=== PATIENT | female | born 1960 | race Caucasian/White ===

== ENCOUNTER 2021-04-05 10:34 | Inpatient (IN) | payer SELFPAY ==
[~2021-04-05 10:34] MED LIST: Iopamidol-370 76% 500 ML 1 ML ONE
[2021-04-05] MEDS ORDERED: Dexamethasone 10 MG/ML VIAL ONE (11:07)
[2021-04-05 11:11] LABS: #Basophils 0.1 thou/uL (0.0-0.2); #Eosinphils 0.1 thou/uL (0.0-0.7); #Lymphocytes 1.5 thou/uL (1.20-3.40); #Monocytes 0.8 thou/uL (0.11-0.59); #Neutrophils 6.2 thou/uL (1.40-6.50); %Basophils 0.7 % (0.0-1.0); %Eosinophils 0.9 % (0.0-10.0); %Lymphocytes 16.9 % (21.0-51.0); %Monocytes 9.2 % (0.0-10.0); %Neutrophils 72.3 % (42.0-75.0); Hemoglobin 13.9 g/dL (12.0-16.0); Mean Corpuscular HGB CONC 31.3 g/dL (32.0-36.0); Mean Corpuscular Hemoglobin 29.8 pg (27.0-31.0); Mean Corpuscular Volume 95.1 fL (78.0-98.0); Mean Platelet Volume 7.1 fL (7.4-10.4); Platelet Count 410 thou/uL (130-400); RBC Distribution Width 11.9 % (11.5-14.5); Red Blood Cell (RBC) Count 4.68 mill/uL (4.20-5.40); White Blood Cell (WBC) Count 8.6 thou/uL (4.8-10.8)
[2021-04-05 11:40] LABS: ALT (SGPT) 193 U/L (8-55); AST (SGOT) 164 U/L (5-34); Albumin 3.3 g/dL (3.5-5.0); Alkaline Phosphatase 237 U/L (40-110); Anion Gap 15 mmol/L (10-20); BUN (Urea Nitrogen) 10 mg/dL (9.8-20.1); Bilirubin, Total 0.9 mg/dL (0.2-1.2); Calc. Creatinine Clearance 0 mL/min (70-130); Calcium 9.6 mg/dL (7.8-10.44); Carbon Dioxide 30 mmol/L (22-29); Chloride 97 mmol/L (98-107); Globulin 4.1 g/dL (2.4-3.5); Glucose 102 mg/dL (70-105); Lipase 9 U/L (8-78); Magnesium 1.8 mg/dL (1.6-2.6); Potassium 3.6 mmol/L (3.5-5.1); Protein, Total 7.4 g/dL (6.0-8.3); Sodium 138 mmol/L (136-145)
[2021-04-05] MEDS ORDERED: Ondansetron PF 4 MG/2 ML Vial ONE (11:50)
[2021-04-05 12:13] LABS: Bilirubin Negative (Negative); Blood, Urine Negative (Negative); Clarity Clear (Clear); Glucose, Urine (Dipstick) Normal (Negative); Ketone, Urine Negative (Negative); Leukocyte Negative Leu/uL (Negative); Nitrite Negative (Negative); Protein, Urine (Dipstick) Negative (Neg-Trace); Specific Gravity, Urine 1.004 (1.002-1.036); Urobilinogen Normal mg/dL (Less than 2)
[2021-04-05 12:18] LABS: SARS-CoV-2 NAA Rapid Test DETECTED (NotDetected)
[2021-04-05] MEDS ORDERED: Enoxaparin Sodium 100 MG/ML SYRINGE ONE (12:46)
[2021-04-05] MEDS ORDERED: Acetaminophen 325 MG TAB PO PRN (13:03)
[2021-04-05] MEDS ORDERED: Metoprolol Tartrate 5 MG/5 ML VIAL IVP PRN (13:07)
[2021-04-05] MEDS ORDERED: guaiFENesin/Codeine 200 mg/20 mg 10 ml Cup PO PRN (13:07)
[2021-04-05 14:27] VITALS: BMI 35.3
[2021-04-06] MEDS ORDERED: guaiFENesin/Codeine 200 mg/20 mg 10 ml Cup PO PRN (00:30)
[2021-04-06] MEDS ORDERED: Enoxaparin Sodium 100 MG/ML SYRINGE SC SCH ×2 (01:00→09:00)
[2021-04-06 04:53] LABS: Mean Corpuscular HGB CONC 32.2 g/dL (32.0-36.0); Mean Corpuscular Hemoglobin 30.5 pg (27.0-31.0); Mean Platelet Volume 7.1 fL (7.4-10.4); Platelet Count 399 thou/uL (130-400); Red Blood Cell (RBC) Count 3.94 mill/uL (4.20-5.40); White Blood Cell (WBC) Count 7.4 thou/uL (4.8-10.8)
[2021-04-06 05:18] LABS: ALT (SGPT) 146 U/L (8-55); AST (SGOT) 93 U/L (5-34); Albumin 2.8 g/dL (3.5-5.0); Alkaline Phosphatase 192 U/L (40-110); Anion Gap 10 mmol/L (10-20); BUN (Urea Nitrogen) 9 mg/dL (9.8-20.1); Bilirubin, Total 0.5 mg/dL (0.2-1.2); Calc. Creatinine Clearance 142 mL/min (70-130); Calcium 8.6 mg/dL (7.8-10.44); Carbon Dioxide 30 mmol/L (22-29); Chloride 102 mmol/L (98-107); Globulin 3.6 g/dL (2.4-3.5); Glucose 120 mg/dL (70-105); Potassium 4.3 mmol/L (3.5-5.1); Protein, Total 6.4 g/dL (6.0-8.3); Sodium 138 mmol/L (136-145)
[2021-04-06] MEDS: Levothyroxine Sodium 112 MCG TAB PO SCH ×3 (05:45→20:46)
[2021-04-06 06:09] LABS: Band 15 % (5-11); Lymphocytes 15 % (21-51); MDiff Complete? YES; Monocytes 7 % (0-10); Neutrophil 63 % (42-75)
[2021-04-06] MEDS: Dexamethasone 6 MG in Sodium Chloride 0.9% 50 ML IVPB SCH (10:17)
[2021-04-06] MEDS ORDERED: Calcium Carbonate 500 MG ChewTAB PO PRN (14:57)
[2021-04-06] MEDS: Apixaban 5 MG TAB PO SCH (20:45)
[2021-04-07] MEDS: guaiFENesin/Codeine 200 mg/20 mg 10 ml Cup PO PRN ×2 (01:05→23:29)
[2021-04-07 05:05] LABS: #Lymphocytes 1.9 thou/uL (1.20-3.40); #Monocytes 1.1 thou/uL (0.11-0.59); %Basophils 0.2 % (0.0-1.0); %Eosinophils 0.4 % (0.0-10.0); %Monocytes 9.9 % (0.0-10.0); %Neutrophils 72.5 % (42.0-75.0); Hemoglobin 11.7 g/dL (12.0-16.0); Mean Corpuscular HGB CONC 31.8 g/dL (32.0-36.0); Mean Corpuscular Hemoglobin 30.1 pg (27.0-31.0); Mean Corpuscular Volume 94.7 fL (78.0-98.0); Mean Platelet Volume 6.8 fL (7.4-10.4); Platelet Count 490 thou/uL (130-400); Red Blood Cell (RBC) Count 3.88 mill/uL (4.20-5.40)
[2021-04-07 05:38] LABS: ALT (SGPT) 145 U/L (8-55); AST (SGOT) 98 U/L (5-34); Albumin 2.8 g/dL (3.5-5.0); Alkaline Phosphatase 180 U/L (40-110); Anion Gap 10 mmol/L (10-20); BUN (Urea Nitrogen) 10 mg/dL (9.8-20.1); Bilirubin, Total 0.5 mg/dL (0.2-1.2); CRP (Inflammatory) 10.11 mg/dL (= or < 0.5); Calc. Creatinine Clearance 151 mL/min (70-130); Calcium 8.4 mg/dL (7.8-10.44); Carbon Dioxide 28 mmol/L (22-29); Chloride 104 mmol/L (98-107); Globulin 3.3 g/dL (2.4-3.5); Glucose 93 mg/dL (70-105); Potassium 4.3 mmol/L (3.5-5.1); Protein, Total 6.1 g/dL (6.0-8.3); Sodium 138 mmol/L (136-145)
[2021-04-07] MEDS: Apixaban 5 MG TAB PO SCH ×2 (08:49→22:19)
[2021-04-07] MEDS: Dexamethasone 6 MG in Sodium Chloride 0.9% 50 ML IVPB SCH (08:49)
[2021-04-07] MEDS: Levothyroxine Sodium 112 MCG TAB PO SCH (22:19)
[2021-04-08 05:20] LABS: #Basophils 0.1 thou/uL (0.0-0.2); #Eosinphils 0.1 thou/uL (0.0-0.7); #Lymphocytes 2.1 thou/uL (1.20-3.40); #Monocytes 1.2 thou/uL (0.11-0.59); #Neutrophils 6.8 thou/uL (1.40-6.50); %Basophils 0.6 % (0.0-1.0); %Eosinophils 0.6 % (0.0-10.0); %Lymphocytes 20.6 % (21.0-51.0); %Neutrophils 66.3 % (42.0-75.0); Hemoglobin 11.9 g/dL (12.0-16.0); Mean Corpuscular HGB CONC 32.4 g/dL (32.0-36.0); Mean Corpuscular Hemoglobin 30.8 pg (27.0-31.0); Mean Corpuscular Volume 95.1 fL (78.0-98.0); Mean Platelet Volume 6.6 fL (7.4-10.4); Platelet Count 466 thou/uL (130-400); RBC Distribution Width 11.9 % (11.5-14.5); Red Blood Cell (RBC) Count 3.88 mill/uL (4.20-5.40); White Blood Cell (WBC) Count 10.2 thou/uL (4.8-10.8)
[2021-04-08 05:54] LABS: ALT (SGPT) 133 U/L (8-55); AST (SGOT) 69 U/L (5-34); Albumin 2.8 g/dL (3.5-5.0); Alkaline Phosphatase 178 U/L (40-110); Anion Gap 12 mmol/L (10-20); BUN (Urea Nitrogen) 9 mg/dL (9.8-20.1); Bilirubin, Total 0.5 mg/dL (0.2-1.2); CRP (Inflammatory) 4.93 mg/dL (= or < 0.5); Calc. Creatinine Clearance 153 mL/min (70-130); Carbon Dioxide 28 mmol/L (22-29); Chloride 103 mmol/L (98-107); Globulin 3.3 g/dL (2.4-3.5); Glucose 78 mg/dL (70-105); Potassium 4.2 mmol/L (3.5-5.1); Protein, Total 6.1 g/dL (6.0-8.3); Sodium 139 mmol/L (136-145)
[2021-04-08] MEDS: Ascorbic Acid 500 mg Chewable Tablet PO SCH (07:42)
[2021-04-08] MEDS: Cholecalciferol (Vitamin D3) 400 UNITS TAB PO SCH (07:43)
[2021-04-08] MEDS: Zinc Sulfate 220 MG CAP PO SCH (07:43)
[2021-04-08] MEDS: Apixaban 5 MG TAB PO SCH ×2 (07:43→20:21)
[2021-04-08] MEDS: Dexamethasone 4 mg/ml Vial SLOW IVP SCH (07:43)
[2021-04-08] MEDS ORDERED: Ondansetron PF 4 MG/2 ML Vial IVP PRN (10:20)
[2021-04-08] MEDS: Levothyroxine Sodium 112 MCG TAB PO SCH (20:21)
[2021-04-08] MEDS: guaiFENesin/Codeine 200 mg/20 mg 10 ml Cup PO PRN (23:08)
[2021-04-09 07:46] LABS: Albumin 3.1 g/dL (3.5-5.0)
[2021-04-09 07:47] LABS: Calcium 8.1 mg/dL (7.8-10.44); Chloride 103 mmol/L (98-107); Sodium 139 mmol/L (136-145)
[2021-04-09 07:48] LABS: Globulin 3.4 g/dL (2.4-3.5); Glucose 77 mg/dL (70-105); Protein, Total 6.5 g/dL (6.0-8.3)
[2021-04-09 07:49] LABS: Anion Gap 13 mmol/L (10-20); Carbon Dioxide 27 mmol/L (22-29)
[2021-04-09 07:50] LABS: Bilirubin, Total 0.6 mg/dL (0.2-1.2)
[2021-04-09 07:51] LABS: Alkaline Phosphatase 187 U/L (40-110); CRP (Inflammatory) 4.97 mg/dL (= or < 0.5); Calc. Creatinine Clearance 144 mL/min (70-130)
[2021-04-09 07:52] LABS: BUN (Urea Nitrogen) 10 mg/dL (9.8-20.1)
[2021-04-09 07:53] LABS: AST (SGOT) 95 U/L (5-34)
[2021-04-09 07:54] LABS: ALT (SGPT) 172 U/L (8-55)
[2021-04-09] MEDS: Ascorbic Acid 500 mg Chewable Tablet PO SCH (09:04)
[2021-04-09] MEDS: Apixaban 5 MG TAB PO SCH (09:04)
[2021-04-09] MEDS: Cholecalciferol (Vitamin D3) 400 UNITS TAB PO SCH (09:05)
[2021-04-09] MEDS: Dexamethasone 4 mg/ml Vial SLOW IVP SCH (09:05)
[2021-04-09] MEDS: Zinc Sulfate 220 MG CAP PO SCH (09:05)
[2021-04-09 13:01] VITALS: BP 134/66; TEMP 98.3
== END 2021-04-09 16:25 | disposition home or self-care (01) | DRG 177 ==
LOC: ERS 10:34 → OBSVTOIN 12:12 → ERHOLD 12:12 → 2SW 14:19
PROVIDERS: ADMIT Internal Medicine; ATTEND Family Medicine
PROC: 8E0ZXY6 Isolation (ICD-10-PCS; principal; 2021-04-05)
DX: U07.1 COVID-19 (principal); J12.82 Pneumonia due to coronavirus disease 2019; I26.99 Other pulmonary embolism without acute cor pulmonale; J96.01 Acute respiratory failure with hypoxia; E03.9 Hypothyroidism, unspecified; R79.89 Other specified abnormal findings of blood chemistry; Z90.89 Acquired absence of other organs; Z98.890 Other specified postprocedural states; Z79.890 Hormone replacement therapy
CPT/HCPCS: 0240U; 36415; 71045; 71275; 80053; 81003; 82728; 83605; 83615; 83690; 83735; 83880; 84484; 85007; 85025; 85027; 85379; 86140; 87040; 87086; 93005; 93306; 93970; 96365; 96366; 96372; 96375; J1100; J1650; J1956; J2405; J7620; Q9967